=== PATIENT | male | born 1980 | race American Indian/Alaskan Native ===

== ENCOUNTER 2018-11-14 19:43 | Emergency (ER) | payer OTHER ==
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
--- NOTE | 2018-11-14 22:06 | Cat Scan Report ---
CT HEAD WITHOUT CONTRAST INDICATION / CLINICAL INFORMATION: headache. TECHNIQUE: All CT scans at this location are performed using CT dose reduction for ALARA by means of automated e xposure control. COMPARISON: None available. FINDINGS: HEMORRHAGE: No evidence of intracranial hemorrhage or extra-axial fluid collection. EXTRA-AXIAL SPACES: Cortical sulci, sylvian fissures and basilar cisterns have an unremarkable appear ance. VENTRICULAR SYSTEM: The ventricular system is of normal size and configuration. CEREBRAL PARENCHYMA: No areas of abnormal brain parenchymal attenuation are identified. There is no i ndication of recent infarction. MIDLINE SHIFT OR HERNIATION: There is no mass effect. CEREBELLUM / BRAINSTEM: Brainstem and cerebellum have an unremarkable appearance. INTRACRANIAL VESSELS:No abnormalities are identified on this noncontrast head CT. ORBITS: The orbits are largely excluded from this study. SOFT TISSUES of HEAD: No significant abnorma lity. CALVARIUM: Evaluation of bone windows reveals no abnormalities. PARANASAL SINUSES / MASTOID AIR CELLS: Maxillary sinuses are excluded. Visualized paranasal sinuses a re free from significant inflammatory mucosal disease. Mastoid air cells are normally pneumatized. IMPRESSION: 1. No abnormalities are identified on head CT without contrast. Signer Name: Tyree Miramontes MD Signed: 11/14/2018 10:02 PM Workstation Name: [id number]
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
[2018-11-15] MEDS ORDERED: IBUPROFEN 600 MG TAB PO ONE (02:19)
[2018-11-15] MEDS ORDERED: ACETAMINOPHEN 500 MG TAB PO ONE (02:21)
[2018-11-15 02:36] VITALS: BP 120/67
== END 2018-11-15 02:35 | disposition home or self-care (01) ==
LOC: ED 19:43
DX: S09.11XA Strain of muscle and tendon of head, initial encounter (principal); G44.319 Acute post-traumatic headache, not intractable; Z79.899 Other long term (current) drug therapy; Z88.0 Allergy status to penicillin; Z88.5 Allergy status to narcotic agent; Z88.8 Allergy status to other drugs, medicaments and biological substances; V49.49XA Driver injured in collision with other motor vehicles in traffic accident, initial encounter; Y93.89 Activity, other specified; Y92.410 Unspecified street and highway as the place of occurrence of the external cause; Y99.8 Other external cause status
CPT/HCPCS: 70450